=== PATIENT | female | born 1990 | race Caucasian/White ===

== ENCOUNTER 2023-11-14 01:42 | Inpatient (IN) ==
[~2023-11-14 01:42] MED LIST: Morphine PF AMP (0.5MG/ML) 5 MG/10 ML AMP ONE; fentaNYL 100 mcg/2 ml 50 MCG/ML VIAL ONE
[2023-11-14] MEDS: Magnesium Sulfate OB PREMIX 4 GM/100 ML BAG IV ONE (01:43)
[2023-11-14] MEDS: Sodium Citrate/Citric Acid LIQ 15 ML UDC ONE ×2 (01:44→06:39)
[2023-11-14] MEDS ORDERED: Ondansetron 4 mg VIAL 2 MG/ML 2 ml VIAL ONE (01:44)
[2023-11-14] MEDS: Lactated Ringers 1000 ml BAG 1,000 ML IV ONE (01:44)
[2023-11-14 01:48] LABS: ABS Basophils 0.1 10^3/uL (0.0-0.1); ABS Eosinophils 0.1 10^3/uL (0.0-0.5); ABS Lymphocytes 2.3 10^3/uL (1.0-4.8); ABS Neutrophils 10.3 10^3/uL (1.5-7.6); Eosinophil % 0.5 %; Hematocrit 30.4 % (35-45); Hemoglobin 10.3 g/dL (11.5-14.3); Lymphocyte % 16.6 %; Mean Corpuscular Volume 85.4 fL (80-97); Mean Platelet Volume 7.3 fL (7.5-11.2); Platelet Count 249 10^3/uL (150-450); Red Blood Count 3.56 10^6/uL (3.63-4.92); Red Cell Distribution Width 13.4 % (12-17); White Blood Count 13.6 10^3/uL (3.8-11.8)
[2023-11-14] MEDS: ceFOXitin 2 GM IVPREMIX 2 GM/50 ML BAG IVPB ONE (01:59)
[2023-11-14] MEDS: Lactated Ringers 1000 ml BAG 1,000 ML IV SCH (02:02)
[2023-11-14] MEDS ORDERED: Bupivacaine-MPF SPINAL 7.5 MG/ML - 2ML AMP ONE (02:09)
[2023-11-14 02:11] LABS: ALT 11 U/L (7-52); Albumin 3.2 g/dL (3.2-5.2); Albumin/Globulin Ratio 1.3 (1-3); Alkaline Phosphatase 62 U/L (35-149); Blood Urea Nitrogen 13 mg/dL (6-24); CO2 Carbon Dioxide 20 mmol/L (22-32); Calcium 8.1 mg/dL (8.6-10.3); Chloride 102 mmol/L (101-111); Globulin 2.5 g/dL (2-4); Glucose 85 mg/dL (70-100); Sodium 132 mmol/L (135-145); Total Bilirubin 0.2 mg/dL (0.2-1.0); Total Protein 5.7 g/dL (6.4-8.9); eGFR CKD-EPI 116.3 (>60)
[2023-11-14] MEDS: Methylergonovine 0.2 mg AMPULE 1 ml AMP ONE (02:16)
[2023-11-14] MEDS ORDERED: Midazolam 2 mg/2 ml VIAL 1 mg/ml 2 ml VIAL (2 mg) ONE (02:30)
[2023-11-14 02:47] LABS: Anion Gap 10 mmol/L (2-16); HIV 4th Generation Nonreactive (Nonreactive)
[2023-11-14] MEDS ORDERED: Phenylephrine 40 mcg/mL 10mL (400mcg) SYRINGE ONE (02:48)
[2023-11-14] MEDS ORDERED: Metoclopramide 5 MG/ML VIAL (10 mg) IV PRN (02:50)
[2023-11-14] MEDS ORDERED: Ondansetron 4 mg VIAL 2 MG/ML 2 ml VIAL IV PRN (02:50)
[2023-11-14] MEDS ORDERED: Naloxone 0.4 mg VIAL 0.4 mg/ml 1 ml VIAL IV PUSH PRN (02:50)
[2023-11-14] MEDS ORDERED: Lidocaine 1% VIAL 10 MG/ML 30 ML VIAL INJ PRN (03:09)
[2023-11-14] MEDS: Acetaminophen IV 1 GM/100ML 1,000 MG/100 ML BAG IV PRN (03:13)
[2023-11-14] MEDS ORDERED: Glycerin ADULT 2.4 gm SUPP PR PRN (03:19)
[2023-11-14] MEDS ORDERED: Witch Hazel PAD JAR TOPICAL PRN (03:19)
[2023-11-14] MEDS ORDERED: Dibucaine 1% OINT 28.35 GM TUBE PR PRN (03:19)
[2023-11-14] MEDS ORDERED: Lactated Ringers 1000 ml BAG 1,000 ML IV SCH (04:00)
[2023-11-14 04:30] LABS: Urine Appearance Clear; Urine Bilirubin Negative (Negative); Urine Blood Trace (Negative); Urine Color Colorless; Urine Glucose 2+ (>=150 mg/dL) (Negative); Urine Ketones 2+ (Negative); Urine Nitrite Negative (Negative); Urine Protein Negative (Negative); Urine Specific Gravity 1.015 (1.002-1.030); Urine Urobilinogen Negative (Negative); Urine pH 7.5 (5.0-8.0)
[2023-11-14 04:49] LABS: Urine Benzodiazepine Screen Presumptive Positive (None Detect); Urine Cannabinoids Screen None Detected (None Detect); Urine Opiates Screen None Detected (None Detect)
[2023-11-14] MEDS: Oxytocin in LR 20,000 MILLI.UNIT/1,000 ML BAG IV SCH (06:09)
[2023-11-14] MEDS: ceFOXitin 2 GM IVPREMIX 2 GM/50 ML BAG ONE (06:25)
[2023-11-14] MEDS: Magnesium Sulfate OB PREMIX 40 GM/1,000 ML BAG ONE (06:25)
[2023-11-14] MEDS: Buffered Lidocaine 1% SYRIN 1 ml INTRADERM ONE (06:27)
[2023-11-14] MEDS ORDERED: Tetan/Diph/Pertus SYR(Tdap) 0.5 ML SYR(BOOSTRIX) use SYR contains LATEX IM ONE (12:43)
[2023-11-15 06:50] LABS: ABS Lymphocytes 1.6 10^3/uL (1.0-4.8); ABS Monocytes 0.9 10^3/uL (0.0-0.9); ABS Neutrophils 10.2 10^3/uL (1.5-7.6); Eosinophil % 0.4 %; Hematocrit 23.8 % (35-45); Hemoglobin 7.9 g/dL (11.5-14.3); Lymphocyte % 12.6 %; Mean Corpuscular Hemoglobin 28.8 pg (27-33); Mean Corpuscular Hgb Conc 33.4 g/dL (31-36); Mean Corpuscular Volume 86.1 fL (80-97); Mean Platelet Volume 7.1 fL (7.5-11.2); Platelet Count 179 10^3/uL (150-450); Red Blood Count 2.76 10^6/uL (3.63-4.92); Red Cell Distribution Width 13.2 % (12-17); White Blood Count 12.8 10^3/uL (3.8-11.8)
[2023-11-16 08:29] VITALS: BP 100/59
[2023-11-16] MEDS: Tetan/Diph/Pertus SYR(Tdap) 0.5 ML SYR(BOOSTRIX) use SYR contains LATEX IM ONE (09:33)
[2023-11-16 11:11] LABS: Hematocrit 24.6 % (35-45); Hemoglobin 8.4 g/dL (11.5-14.3)
[2023-11-16] MEDS: Iron Sucrose 200 MG in NS 0.9% 100 ml BAG 100 ML IVPB ONE (12:57)
== END 2023-11-16 13:04 | disposition home or self-care (01) | DRG 540 ==
LOC: MCHOBOUT 01:42 → MCHOB 01:50
PROVIDERS: ADMIT Obstetrics & Gynecology; ATTEND Obstetrics & Gynecology